=== PATIENT | male | born 1955 | race Caucasian/White ===

== ENCOUNTER 2016-09-24 06:36 | Day surgery (SDC) | payer OTHER ==
[2016-09-24] MEDS ORDERED: PROPOFOL 500 MG/50 ML EMU IV ONE (07:31)
[2016-09-24] MEDS ORDERED: LIDOCAINE HCL 1% MPF SOL ONE (07:31)
[2016-09-24 08:41] VITALS: TEMP 96.9
[2016-09-24 09:07] VITALS: RESP 18
[2016-09-24 09:18] VITALS: BP 142/80; PULSE 84; O2SAT 97
== END 2016-09-24 09:47 | disposition home or self-care (01) ==
LOC: SURG 06:36
PROVIDERS: ATTEND Internal Medicine Gastroenterology
DX: Z12.11 Encounter for screening for malignant neoplasm of colon (principal); Z86.010 Personal history of colon polyps; Z80.0 Family history of malignant neoplasm of digestive organs; Z83.71 Family history of colonic polyps; E11.9 Type 2 diabetes mellitus without complications; K57.30 Diverticulosis of large intestine without perforation or abscess without bleeding; K64.8 Other hemorrhoids
CPT/HCPCS: 45378; J2001; J2704; 82962